=== PATIENT | male | born 1980 | race American Indian/Alaskan Native ===

== ENCOUNTER 2019-04-13 15:26 | Emergency (ER) | payer SELFPAY ==
[2019-04-13 16:46] VITALS: BP 121/80
--- NOTE | 2019-04-13 16:50 | Event Note ---
ED Screening Note Date of service: 04/13/18 Time: 16:48 ED Screening Note: Pt complains of left hip pain x 3 days denies injury 8/10 pain, denies fever, dysuria, or IV drug use This initial assessment/diagnostic orders/clinical plan/treatment(s) is/are subject to change based on patients health status, clinical progression and re- assessment by fellow clinical providers in the ED. Further treatment and workup at subsequent clinical providers discretion. Patient/guardian urged not to elope from the ED as their condition may be serious if not clinically assessed and managed. Initial orders include: xr
--- NOTE | 2019-04-13 17:49 | XRay Report ---
LEFT HIP 2 VIEWS. INDICATION / CLINICAL INFORMATION: pain, no injury COMPARISON: None available. FINDINGS: BONES / JOINT(S): No acute fracture or subluxation. No significant arthritis. SOFT TISSUES: No significant abnormality. ADDITIONAL FINDINGS: None. Signer Name: Ruslan Oden MD Signed: 04/13/2019 5:45 PM Workstation Name: [id number]
== END 2019-04-13 19:28 | disposition left against medical advice (07) ==
LOC: ED 15:26
DX: M25.552 Pain in left hip (principal); Z53.21 Procedure and treatment not carried out due to patient leaving prior to being seen by health care provider